=== PATIENT | male | born 1985 | race Caucasian/White ===

== ENCOUNTER → 2022-07-20 13:25 | Outpatient (CLI) | payer OTHER, SELFPAY ==
[2022-07-20 20:14] LABS: Hepatitis B Surface Antigen NEGATIVE s/c (NEGATIVE)
[2022-07-22 13:47] LABS: QuantiFERON Mitogen Value >10.00 IU/mL (.); QuantiFERON Nil Value 0.05 IU/mL (.); QuantiFERON TB Gold Plus Negative (Negative); QuantiFERON TB1 Ag Value 0.12 IU/mL (.); QuantiFERON TB2 Ag Value 0.18 IU/mL (.)
== END ==
PROVIDERS: PCP Family Medicine; Visit Provider Family Medicine
DX: L40.50 Arthropathic psoriasis, unspecified (principal); L40.9 Psoriasis, unspecified
CPT/HCPCS: 86480; 87340

== ENCOUNTER → 2023-05-19 09:21 | Outpatient (CLI) | payer OTHER, SELFPAY ==
[2023-05-19 19:03] LABS: Hepatitis B Surface Antigen NEGATIVE s/c (NEGATIVE)
[2023-05-23 13:41] LABS: QuantiFERON Mitogen Value >10.00 IU/mL (.); QuantiFERON Nil Value 0.07 IU/mL (.); QuantiFERON TB Gold Plus Negative (Negative); QuantiFERON TB1 Ag Value 0.07 IU/mL (.); QuantiFERON TB2 Ag Value 0.07 IU/mL (.)
== END ==
PROVIDERS: PCP Family Medicine; Visit Provider Family Medicine
DX: L40.50 Arthropathic psoriasis, unspecified (principal); Z79.620 Long term (current) use of immunosuppressive biologic
CPT/HCPCS: 86480; 87340

== ENCOUNTER → 2024-12-03 08:43 | Outpatient (CLI) | payer OTHER, SELFPAY ==
[2024-12-03 19:41] LABS: Add Manual Diff / Slide Review NO; Basophils Absolute Auto 0 /uL (0-100); Basophils Percent Auto 0.2 % (0-2); Eosinophils Absolute Auto 100 /uL (0-450); Eosinophils Percent Auto 2.4 % (2-4); Hematocrit 39.3 % (41-53); Hemoglobin 13.7 g/dL (13.5-17.5); Lymphocytes Absolute Auto 2400 /uL (1100-4500); Lymphocytes Percent Auto 40.7 % (25-40); Mean Corpuscular HGB Conc 34.8 % (30-36); Mean Corpuscular Hemoglobin 31.3 PG (26-34); Mean Corpuscular Volume 90.1 fL (80-100); Monocytes Absolute Auto 200 /uL (0-900); Monocytes Percent Auto 4.2 % (3-14); Neutrophils Absolute Auto 3000 /uL (1500-7000); Neutrophils Percent Auto 52.5 % (50-75); Platelet Count 257 X10^3/uL (150-400); Red Blood Cell Count 4.36 X10^6/uL (4.5-5.9); Red Cell Distribution Width 12.1 % (11.6-14.8); White Blood Cell Count 5.8 X10^3/uL (4.5-11.0)
[2024-12-03 19:57] LABS: Alanine Aminotransferase 44 IU/L (<50); Albumin 4.7 g/dL (3.5-5.0); Albumin Globulin Ratio 1.6 (1.0-2.8); Alkaline Phosphatase 45 U/L (38-126); Aspartate Aminotransferase 38 IU/L (17-59); BUN Creatinine Ratio 24.7 (6-22); Bilirubin Total 2.5 mg/dL (0.2-1.3); Blood Urea Nitrogen 18 mg/dL (9-20); Calcium 9.5 mg/dL (8.4-10.2); Carbon Dioxide 28 mmol/L (22-32); Chloride 101 mmol/L (98-107); Cholesterol 99 mg/dL (140-199); Estimated Glomerular Filt Rate > 60 mL/min (>60); Globulin 2.9 g/dL (1.7-4.1); Glucose 100 mg/dL (70-99); HDL Cholesterol 48 mg/dL (40-60); HEMOLYSIS 28 (0-50); LDL Cholesterol Calculated 46 mg/dL (<100); Potassium 4.6 mmol/L (3.4-5.1); Sodium 138 mmol/L (137-145); Total Protein 7.6 g/dL (6.3-8.2); Triglycerides 27 mg/dL (35-150)
[2024-12-03 20:26] LABS: Prostate Specific Antigen Scrn 0.478 ng/mL (0.1-4.0)
[2024-12-03 21:53] LABS: HIV 1 & 2 Ab/Ag 4th Gen Combo NEGATIVE (NEGATIVE); Hep C Virus Ab w/Reflex Quant NEGATIVE s/c (NEGATIVE)
== END ==
PROVIDERS: PCP Family Medicine; Visit Provider Physician Assistant
DX: Z12.5 Encounter for screening for malignant neoplasm of prostate (principal); Z79.620 Long term (current) use of immunosuppressive biologic; Z13.6 Encounter for screening for cardiovascular disorders; Z11.4 Encounter for screening for human immunodeficiency virus [HIV]; Z11.59 Encounter for screening for other viral diseases; Z79.899 Other long term (current) drug therapy
CPT/HCPCS: 80053; 80061; 85025; 86803; 87389; G0103